=== PATIENT | male | born 1970 | race Caucasian/White ===

== ENCOUNTER 2019-11-01 11:09 | Emergency (ER) | payer OTHER ==
--- NOTE | 2019-11-01 11:30 | UC ---
Ear Complaint HPI - HPI Summary HPI Summary: 49-year-old male who thinks he has a piece of a Q-tip stuck in his left ear. He was cleaning his years with an off brand Q-tip. - History of Current Complaint Chief Complaint: UCEar Stated Complaint: COTTON STUCK IN EAR Time Seen by Provider: 11/01/19 11:14 Hx Obtained From: Patient Onset/Duration: Sudden Onset Severity Initially: Mild Severity Currently: None Pain Intensity: 0 Alleviating Factors: Nothing - Allergies/Home Medications Allergies/Adverse Reactions: Allergies Allergy/AdvReac Type Severity Reaction Status Date / Time No Known Allergies Allergy Verified 11/01/19 11:24 Home Medications: Home Medications NK [No Home Medications Reported] 11/01/19 [History Confirmed 11/01/19] PMH/Surg Hx/FS Hx/Imm Hx Previously Healthy: Yes - Surgical History Surgical History: None - Family History Known Family History: Positive: Non-Contributory - Social History Alcohol Use: Occasionally Substance Use Type: None Smoking Status (MU): Never Smoked Tobacco Review of Systems All Other Systems Reviewed And Are Negative: Yes ENT: Positive: Other - Patient thinks he has a piece of Q-tip in his left ear. Is Patient Immunocompromised?: No Physical Exam Triage Information Reviewed: Yes Appearance: Well-Appearing, No Pain Distress, Well-Nourished Vital Signs: Initial Vital Signs Temp 98.1 F 11/01/19 11:23 Pulse 84 11/01/19 11:23 Resp 15 11/01/19 11:23 BP 162/97 11/01/19 11:23 Pulse Ox 100 11/01/19 11:23 Vital Signs Reviewed: Yes Eyes: Positive: Conjunctiva Clear ENT: Positive: Hearing grossly normal, TMs normal, Other - No foreign body noted in either ear. Psychological Exam: Normal Ear Complaint Course/Dx - Course Course Of Treatment: I was unable to visualize any foreign body in either of his ears. He was advised not to use Q-tips however if he does he was advised to use Q-tip brand since they do not usually come apart. He's follow-up with his primary care provider as needed. - Differential Dx/Diagnosis Provider Diagnosis: Hx of foreign body in auditory canal Discharge ED - Sign-Out/Discharge Documenting (check all that apply): Patient Departure All imaging exams completed and their final reports reviewed: No Studies - Discharge Plan Condition: Good Disposition: HOME Referrals: Edmar Heredia MD [Primary Care Provider] - Additional Instructions: Use Q-tip brand Q-tips. Follow-up with your primary care provider as needed. - Billing Disposition and Condition Condition: GOOD Disposition: Home
== END 2019-11-01 11:36 | disposition home or self-care (01) ==
LOC: UCCORT 11:09
DX: Z03.89 Encounter for observation for other suspected diseases and conditions ruled out (principal)
CPT/HCPCS: 99201; G0463